=== PATIENT | female | born 1965 | race Caucasian/White ===

== ENCOUNTER 2025-09-07 11:25 | Emergency (ER) | payer OTHER, SELFPAY ==
[2025-09-07 11:26] VITALS: BP 156/76; PULSE 85; RESP 18; TEMP 36.2; O2SAT 100; BMI 17.2
--- NOTE | 2025-09-07 11:38 | CT_ITS ---
PROCEDURE: ABDOMEN/PELVIS W IV CONT ONLY 09/07/2025 REASON FOR EXAM: DIARRHEA, ABDOMINAL PRESSURE TECHNIQUE: Procedure Code: [id number] Modality: CT Procedure: ABDOMEN/PELVIS W IV CONT ONLY Coronal and Sagittal reconstruction series were provided. CONTRAST: Isovue-300 VOLUME: 75 mL One or more dose reduction techniques were used (e.g., Automated exposure control, adjustment of the mA and/or kV according to patient size, use of iterative reconstruction technique. RADIATION DOSE SUMMARY: CTDlvol: 8.9 mGy DLP: 209.99 mGycm COMPARISON: None FINDINGS: Lung bases: The lung bases are clear. Liver: Normal size. No mass. Gallbladder: Unremarkable Spleen: Normal size. Pancreas: Normal size without evidence of mass surrounding inflammation or ductal dilation. Adrenals: There is a 1.9 cm by 2 cm hypodense nodule in the left adrenal gland. Kidneys: Normal renal sizes. No hydronephrosis. Bladder: Unremarkable Reproductive Organs: Normal uterine size and contour. Ovaries are unremarkable. Bowel: There is circumferential wall thickening of the distal sigmoid and proximal rectum with narrowing of the lumen. A neoplastic process should be ruled out. Increased markings in the presacral fat. Moderate amount of fecal material is seen in the colon. Appendix: The appendix is not identified. There is no inflammatory process identified in the right lower quadrant to suggest appendicitis. Lymph nodes: No suspicious lymph node enlargement. Vasculature: Mild diffuse atherosclerotic calcifications are noted. Peritoneum / Retroperitoneum: Unremarkable Bones: Unremarkable CT/Abdomen/Pelvis W IV Cont ONLY IMPRESSION: Circumferential wall thickening of the distal sigmoid and proximal rectum with narrowing of the lumen. A neoplastic process should be ruled out. Increased markings in the surrounding perirectal fat. Moderate amount of fecal material is seen in the colon. 1.9 cm by 2 cm hypodense nodule in the left adrenal gland. Reading Location: [facility]
--- NOTE | 2025-09-07 11:39 | ED.VIS.GI ---
HPI HPI - GI History of Present Illness Chief Complaint: Diarrhea Narrative Narrative: 60-year-old female who denies significant past medical history presents with diarrhea and abdominal pressure in the suprapubic area that she has had for the last 1 to 2 weeks. She states that she was sent over from urgent care. She endorses generalized weakness and malaise/dehydration. She states that over the last week she was very ill. She endorses multiple episodes of watery stool that became bloody. Yesterday she had multiple episodes. She also had nausea and vomiting which resolved. No prior abdominal surgeries. No recent antibiotics. She does not take blood thinners. She does not take daily medications. Denies fever or chills. No dysuria or hematuria. PFSH PFSH Home Medications ?Medication ?Instructions ?Recorded ?Last Taken ?Type cefdinir 300 mg capsule 300 mg PO BID 10 days #20 caps 09/07/25 Unknown Rx metronidazole 500 mg tablet 500 mg PO TID #30 tabs 09/07/25 Unknown Rx Allergy/AdvReac Type Severity Reaction Status Date / Time No Known Allergies Allergy Verified 09/07/25 11:26 Family History (Updated 09/07/25 @ 12:12 by Lyubov Rogers) Other Tongue abnormality Social History Smoking Status: Current every day smoker tobacco type: cigarettes ROS ROS ED ROS Narrative Review of systems positive for suprapubic abdominal pressure/lower abdominal pain and pressure with bloating. Positive diarrhea previously with blood in stool. No recent antibiotics. No blood thinners. No history of Crohn's/ulcerative colitis. No prior abdominal surgeries. Denies fevers or chills. No hematuria or dysuria. No exacerbating or alleviating factors but may be improving. Endorses generalized weakness and malaise/fatigue. EXAM Physical Exam Narrative Exam Narrative: Afebrile. Vital signs noted. Nontoxic-appearing. Cardiovascular examination reveals a regular rate and rhythm. Lungs are clear to auscultation bilaterally. The abdomen is soft and nontender without guarding or rebound. Positive bowel sounds. Neurological examination nonfocal, nonlateralizing. Tacky to dry mucous membranes. Const Vital Signs: 09/07/25 11:26 09/07/25 13:24 Temperature 97.2 F L 98.2 F Temperature Source Temporal Pulse Rate 85 64 Respiratory Rate 18 18 Blood Pressure 156/76 H 140/76 H Blood Pressure Mean 102 97 Pulse Ox 100 100 Oxygen Delivery Method Room Air MDM MDM MDM Narrative Medical decision making narrative: The differential diagnosis includes but not limited to diverticulitis versus colitis versus dehydration versus other electrolyte abnormality. I have low clinical suspicion for obstruction as her nausea and vomiting has resolved and she has not had any previous abdominal surgeries which would cause adhesions. She may have an ileus. I have low suspicion for C. difficile as she has not had recent antibiotics. I also doubt Crohn as it has not been previously diagnosed. I reviewed her laboratory work and she has slight elevation of her 13.1, hemoglobin hemoconcentrated at 15.1 with hematocrit 45.8, platelet count slightly elevated at 484 which may be more of an acute phase reactant. CMP grossly normal with LFTs normal, lipase normal at 20. Urinalysis negative for infection with 0-5 WBCs. I do not feel antibiotics are indicated. Review of the radiology report of the CT of the abdomen pelvis did show thickening circumferentially of the sigmoid colon and proximal rectum. I discussed the patient with Dr. Durand with general surgery who agrees with antibiotic treatment and outpatient follow-up, but suggested colorectal surgery at a tertiary care center. Patient stated she would like to be referred to [facility]. She was referred to colorectal surgery as an outpatient. I do not feel she requires admission at this time. She was given her first dose of cefdinir and Flagyl and prescription written for the next 10 days. I did stress the importance of follow-up with her for colonoscopy and to ensure resolution versus colonoscopy and biopsy. She acknowledged understanding. Disposition is discharged home in stable condition. History & Record Review Discussion w/independent historian: Patient Lab Data Attestation: I reviewed the patient's lab results. Labs: Laboratory Results - last 24 hr 09/07/25 09/07/25 11:52 12:04 WBC 13.1 H RBC 4.70 Hgb 15.1 H Hct 45.8 MCV 97.4 MCH 32.1 H MCHC 33.0 RDW Std Deviation 48.9 H RDW Coeff of Noemi 13.4 Plt Count 484 H MPV 9.1 Immature Gran % (Auto) 0.300 Neut % (Auto) 71.1 H Lymph % (Auto) 20.5 [place] % (Auto) 6.5 Eos % (Auto) 0.8 Baso % (Auto) 0.8 Absolute Neuts (auto) 9.3 H Absolute Lymphs (auto) 2.68 Nucleated RBC % 0 Sodium 137 Potassium 4.0 Chloride 100 Carbon Dioxide 24.8 Anion Gap 12 BUN 12 Creatinine 0.75 Estim Creat Clear Calc 53.02 Est GFR (MDRD) Non-Af 90 BUN/Creatinine Ratio 16.2 Glucose 91 Calcium 9.5 Total Bilirubin 0.36 AST 17 ALT 8 Alkaline Phosphatase 77 Total Protein 7.2 Albumin 4.3 Globulin 3.0 Albumin/Globulin Ratio 1.4 Lipase 20 Urine Color Yellow Urine Clarity Clear Urine pH 6.0 Ur Specific [place] 1.015 Urine Protein Negative Urine Glucose (UA) Normal Urine Ketones 15 H Urine Occult Blood 10 H Urine Nitrite Negative Urine Bilirubin Negative Urine Urobilinogen Normal Ur Leukocyte Esterase Negative Urine RBC 0-5 SEEN Urine WBC 0-5 SEEN Ur Squamous Epith Cells 0-5 SEEN Urine Bacteria RARE Urine Mucus 0 SEEN Radiography Diagnostic Testing: Clinical Impression(s) from Imaging Studies Abdomen/Pelvis CT 09/07/25 11:38 IMPRESSION: Circumferential wall thickening of the distal sigmoid and proximal rectum with narrowing of the lumen. A neoplastic process should be ruled out. Increased markings in the surrounding perirectal fat. Moderate amount of fecal material is seen in the colon. 1.9 cm by 2 cm hypodense nodule in the left adrenal gland. Reading Location: [place] [address] Discharge Plan Triage Chief Complaint: Diarrhea ED Provider: Star Das Dx/Rx/DC Orders Clinical Impression: Diarrhea, Colitis Instructions: ED Understanding Colitis, ED Diarrhea, Unknown Cause Prescriptions: New cefdinir 300 mg capsule 300 mg PO BID 10 Days Qty: 20 0RF metronidazole 500 mg tablet 500 mg PO TID Qty: 30 0RF Primary Care Provider: Care Physician,No Primary Referrals: NOT,DEFINED [Non-Staff, None] Activity Restrictions/Additional Instructions: Take full course of antibiotics. Follow-up with colorectal surgery at [facility] Or the institution of your choice. You will most likely need colonoscopy and biopsy performed. Return with new or worsening symptoms. Do not drink alcohol while taking metronidazole/Flagyl as you will vomit. Print Language: Hebrew Disposition Disposition: Home, Self Care Discharge Date/Time: 09/07/25 13:53
[2025-09-07 12:03] LABS: Hematocrit 45.8 % (37-47); Hemoglobin 15.1 g/dL (12.0-15.0); Immature Granulocytes Count 0.040 X10^3/uL (0.0-0.0); Mean Corp Hgb Conc 33.0 g/dL (32-36); Mean Corpuscular Volume 97.4 fL (81-99); Mean Platelet Vol. 9.1 fl (6.2-12.0); NRBC Flagged by Analyzer 0 % (0-5); Platelet Count 484 K/mm3 (150-450); RBC Distribution Width CV 13.4 % (11.6-14.6); RBC Distribution Width SD 48.9 fl (35.1-43.9); Red Blood Count 4.70 M/mm3 (4.2-5.4); White Blood Count 13.1 K/mm3 (4.4-11.0)
[2025-09-07] MEDS: 0.9% Normal Saline (1000mL) 1,000 ML 999 ML IV (12:14)
[2025-09-07 12:18] LABS: Mucous, Urine 0 SEEN /hpf (<or=2+)
[2025-09-07 12:22] LABS: Color, Urine Yellow (Yellow); Glucose, Dipstick Normal (Normal); Ketone-Dipstick 15 mg/dl (Negative); Leukocyte Esterase-Dipstick Negative /ul (Negative); Nitrite-Dipstick Negative (Negative); Occult Blood-Urine 10 /ul (Negative); Protein-Dipstick Negative (Negative); Specific Gravity, Urine 1.015 (1.002-1.030); Urine Bilirubin Dipstick Negative (Negative)
[2025-09-07 12:34] LABS: AST(SGOT) 17 U/L (<=31); Alanine Aminotransfer ALT/SGPT 8 U/L (<=34); Albumin, Serum 4.3 g/dL (3.4-4.8); Alkaline Phosphatase 77 U/L (35-104); Anion Gap 12 (5-15); BUN 12 mg/dL (4-19); BUN/Creat Ratio 16.2 RATIO (10-20); Calcium,Total 9.5 mg/dL (7.6-11.0); Carbon Dioxide 24.8 mmol/L (21.0-32.0); Chloride 100 mmol/L (98-108); Estimated Creatinine Clearance 53.02 ml/min (50-250); Globulin 3.0 g/dL (2.2-4.2); Glucose 91 mg/dL (70-99); Lipase 20 U/L (13-75); Potassium 4.0 mmol/L (3.3-5.1)
[2025-09-07 12:38] LABS: Red Blood Cells-Urine 0-5 SEEN /hpf (0-5); Squamous Epithelial Cells - UA 0-5 SEEN /hpf (5-10)
[2025-09-07 13:24] VITALS: BP 140/76; PULSE 64; RESP 18; TEMP 36.8; O2SAT 100
--- NOTE | 2025-09-07 14:00 | CM.ED ---
Social Work Reason for visit: No PCP Patient confirmed that she does not currently have a PCP. [facility] provider list given, no further needs identified at this time. Gabbie Maldonado, [employer] DIRECTOR, CONSTRUCTION SAFETY MANAGER
== END 2025-09-07 13:53 | disposition home or self-care (01) ==
PROVIDERS: Emergency Provider Emergency Medicine; Visit Provider Emergency Medicine
DX: K52.9 Noninfective gastroenteritis and colitis, unspecified (principal); F17.210 Nicotine dependence, cigarettes, uncomplicated
CPT/HCPCS: 74177; 80053; 81001; 83690; 85025; 96360; 99284; Q9967; A4216